=== PATIENT | male | born 1985 | race Caucasian/White ===

== ENCOUNTER 2018-08-27 10:57 | Emergency (ER) | payer OTHER ==
[~2018-08-27] VITALS: Ht 182.9 cm; Wt 99.8 kg
[2018-08-27 11:08] VITALS: BP 126/84
--- NOTE | 2018-08-27 11:38 | PHYS DOC ---
Past History Past Medical History: No Pertinent History Past Surgical History: Other Alcohol Use: None Drug Use: None Adult General Chief Complaint Chief Complaint: FOREIGNBODY EAR HPI HPI 32-year-old male presents with foreign body in his left ear. The patient has hearing aids and he was wearing them yesterday. When he pulled the left one out a piece of it came off. He was unsure if it was in his ear. Today it felt like there was some the in there so he went to [facility]. They can see the optic cannot get it out so they sent him here. She would like it removed. He has no other complaints. Review of Systems Review of Systems Constitutional: Denies fever or chills [] Eyes: Denies change in visual acuity, redness, or eye pain [] HENT: Foreign body in left ear[] Respiratory: Denies cough or shortness of breath [] Cardiovascular: No additional information not addressed in HPI [] GI: Denies abdominal pain, nausea, vomiting, bloody stools or diarrhea [] : Denies dysuria or hematuria [] Musculoskeletal: Denies back pain or joint pain [] Integument: Denies rash or skin lesions [] Neurologic: Denies headache, focal weakness or sensory changes [] Endocrine: Denies polyuria or polydipsia [] All other systems were reviewed and found to be within normal limits, except as documented in this note. Allergies Allergies Allergies Coded Allergies Type Severity Reaction Last Updated Verified No Known Drug Allergies 08/27/18 No Physical Exam Physical Exam Constitutional: Well developed, well nourished, no acute distress, non-toxic appearance. [] HENT: Normocephalic, atraumatic, bilateral external ears normal, oropharynx moist, no oral exudates, nose normal. Foreign object in left ear canal.[] Eyes: PERRLA, EOMI, conjunctiva normal, no discharge. [] Neck: Normal range of motion, no tenderness, supple, no stridor. [] Cardiovascular:Heart rate regular rhythm, no murmur [] Lungs & Thorax: Bilateral breath sounds clear to auscultation [] Abdomen: Bowel sounds normal, soft, no tenderness, no masses, no pulsatile masses. [] Skin: Warm, dry, no erythema, no rash. [] Back: No tenderness, no CVA tenderness. [] Extremities: No tenderness, no cyanosis, no clubbing, ROM intact, no edema. [] Neurologic: Alert and oriented X 3, normal motor function, normal sensory function, no focal deficits noted. [] Psychologic: Affect normal, judgement normal, mood normal. [] Current Patient Data Vital Signs Vital Signs Date Time Temp Pulse Resp B/P (MAP) Pulse Ox O2 Delivery O2 Flow Rate FiO2 08/27/18 11:08 98.1 64 18 96 Room Air EKG EKG [] Radiology/Procedures Radiology/Procedures [] Course & Med Decision Making Course & Med Decision Making Pertinent Labs and Imaging studies reviewed. (See chart for details) I was able to remove the foreign body. The patient no further complaints. He is stable for discharge at this time. [] Dragon Disclaimer Dragon Disclaimer This electronic medical record was generated, in whole or in part, using a voice recognition dictation system. Foreign Body Removal Procedure Indication: Foreign body in the left ear Procedure: I obtained verbal consent from the patient to remove the foreign object from his left ear canal. No anesthesia was used as it was not necessary. There was no prep of the area as it is external to the body. I was able to remove the object with alligator forceps on a single try. There were no remaining foreign objects left in the ear canal. The patient tolerated the procedure well. Complications: None Departure Departure: Impression: Primary Impression: Foreign body in left ear Disposition: 01 HOME, SELF-CARE Condition: IMPROVED Referrals: MALISSA PATEL MD (PCP) Problem Qualifiers Primary Impression: Foreign body in left ear Encounter type: initial encounter Qualified Codes: T16.2XXA - Foreign body in left ear, initial encounter VIVIAN RODRIGUEZ DO Aug 27, 2018 11:38
== END 2018-08-27 11:41 | disposition home or self-care (01) ==
LOC: ER 10:57
DX: T16.2XXA Foreign body in left ear, initial encounter (principal); X58.XXXA Exposure to other specified factors, initial encounter; Y93.89 Activity, other specified; Y92.89 Other specified places as the place of occurrence of the external cause; Y99.8 Other external cause status
CPT/HCPCS: 69200; 99284

== ENCOUNTER 2018-09-12 03:46 | Emergency (ER) | payer OTHER ==
[~2018-09-12] VITALS: Ht 182.9 cm; Wt 99.8 kg
[2018-09-12] MEDS ORDERED: HYDROmorphone PF 1 MG/ML DISP.SYRIN ONE (03:57)
[2018-09-12] MEDS ORDERED: KETOROLAC 30 MG/ML VIAL. ONE (03:57)
[2018-09-12] MEDS ORDERED: ONDANSETRON PF 4 MG/2 ML VIAL. ONE (03:57)
[2018-09-12] MEDS ORDERED: TAMSULOSIN 0.4 MG CAP.ER.24H. PO ONE (03:57)
[2018-09-12] MEDS: ONDANSETRON PF 4 MG/2 ML VIAL. IV ONE ×2 (03:59→07:31)
[2018-09-12] MEDS: IV NORMAL SALINE 1,000ML 1,000 ML IV SCH (03:59)
[2018-09-12] MEDS: KETOROLAC 30 MG/ML VIAL. IV ONE (04:00)
[2018-09-12] MEDS: HYDROmorphone PF 1 MG/ML DISP.SYRIN IV/SQ PRN (04:00)
--- NOTE | 2018-09-12 04:00 | PHYS DOC ---
Past History Past Medical History: No Pertinent History Past Surgical History: Other Alcohol Use: None Drug Use: None Adult General Chief Complaint Chief Complaint: flank pain HPI HPI Patient is a 32-year-old male who presents with complaint of left flank pain that started approximately 45 minutes prior to his arrival. Patient states pain woke him from sleep. He rates pain at a 9 out of 10. He admits to nausea and diaphoresis. He has not vomited yet. Patient states that this is very similar to when he had had a kidney stone in the past. Review of Systems Review of Systems Constitutional: Denies fever or chills [] Respiratory: Denies cough or shortness of breath [] Cardiovascular: No additional information not addressed in HPI [] GI: Complains of left-sided flank and abdominal pain with nausea. Denies vomiting or diarrhea [] : Denies dysuria or hematuria [] Musculoskeletal: Complains of left-sided back pain [] All other systems were reviewed and found to be within normal limits, except as documented in this note. Current Medications Current Medications Current Medications Medications (Trade) Dose Ordered Sig/Barbra Start Time Stop Time Status Last Admin Dose Admin Ondansetron HCl (Zofran) 4 mg STK-MED ONCE 09/12/18 03:57 09/12/18 03:58 DC Allergies Allergies Allergies Coded Allergies Type Severity Reaction Last Updated Verified No Known Drug Allergies 08/27/18 No Physical Exam Physical Exam Constitutional: Well developed, well nourished, in mild distress, non-toxic appearance. [] HENT: Normocephalic, atraumatic, bilateral external ears normal, oropharynx moist, no oral exudates, nose normal. [] Eyes: PERRLA, EOMI, conjunctiva normal, no discharge. [] Neck: Normal range of motion, no tenderness, supple, no stridor. [] Cardiovascular:Heart rate regular rhythm, no murmur [] Lungs & Thorax: Bilateral breath sounds clear to auscultation [] Abdomen: Bowel sounds normal, soft, no tenderness. [] Skin: Warm, dry, no erythema, no rash. [] Extremities: No tenderness, no cyanosis, no clubbing, ROM intact, no edema. [] Neurologic: Alert and oriented X 3, no focal deficits noted. [] EKG EKG [] Radiology/Procedures Radiology/Procedures [] Impressions: PROCEDURE: CT ABDOMEN PELVIS WO CONTRAST EXAM: CT Abdomen and Pelvis without IV contrast CLINICAL HISTORY: Left back and flank pain. Hx kidney stones. COMPARISON: none TECHNIQUE: Helical CT of the abdomen and pelvis without intravenous contrast. Axial, coronal and sagittal reformatted images were generated. PQRS compliance statement - One or more of the following individualized dose reduction techniques were utilized for this study: 1. Automated exposure control 2. Adjustment of the mA and/or kV according to patient size 3. Use of iterative reconstruction technique FINDINGS: Lack of intravenous contrast limits evaluation of solid organs, vasculature, and lymph nodes. Lower chest: Lung bases are clear Abdomen and Pelvis: No focal liver lesion. Gallbladder is normal. No biliary ductal dilatation. Pancreas is unremarkable. Spleen is unremarkable. Adrenal glands are normal. Left renal calculi are seen, punctate in the upper and lower pole and up to 3 mm in the interpolar region. Punctate nonobstructing right upper pole renal calculus. A 3 mm calculus is seen within the proximal left ureter. Mild left hydronephrosis. Bladder is unremarkable. Appendix is normal. Moderate colonic stool content is seen. No small or large bowel obstruction. No abdominal or pelvic lymphadenopathy although several mildly prominent retroperitoneal lymph nodes are seen. No abdominal or pelvic ascites. Bones: Grossly unremarkable IMPRESSION: 1. A 3 mm calculus is seen within the proximal left ureter with mild associated left hydronephrosis. 2. Additional bilateral nonobstructing renal calculi measuring up to 3 mm. Electronically signed by: Johnnie Gomes MD (09/12/2018 4:52 AM) [facility] [id number] DICTATED AND SIGNED BY: JOHNNIE GOMES MD Course & Med Decision Making Course & Med Decision Making Pertinent Labs and Imaging studies reviewed. (See chart for details) [] Dragon Disclaimer Dragon Disclaimer This electronic medical record was generated, in whole or in part, using a voice recognition dictation system. Departure Departure: Impression: Primary Impression: Ureterolithiasis Disposition: HOME, SELF-CARE Condition: STABLE Referrals: MALISSA PATEL MD (PCP) Patient Instructions: Kidney Stones Scripts Ketorolac Tromethamine (KETOROLAC TROMETHAMINE) 10 Mg Tablet 1 TAB PO PRN Q6HRS PRN for PAIN, #20 TAB Prov: VISHAL MIX Jr. DO 09/12/18 Tamsulosin Hcl (FLOMAX) 0.4 Mg Cap.er.24h 1 CAP PO DAILY for kidney stone, #10 CAP Prov: VISHAL MIX Jr. DO 09/12/18 Oxycodone Hcl/Acetaminophen (PERCOCET 10-325 MG TABLET ) 1 Each Tablet 1 TAB PO PRN Q6HRS PRN for PAIN, #15 TAB Prov: VISHAL MIX Jr. DO 09/12/18 Ondansetron Hcl (ZOFRAN) 4 Mg Tablet 4 MG PO Q6HRS PRN for NAUSEA, #12 TAB Prov: VISHAL MIX Jr. DO 09/12/18 VISHAL MIX Jr. DO Sep 12, 2018 03:59
[2018-09-12 04:20] LABS: BASO # 0.1 x10^3/uL (0.0-0.2); BASO % 1 % (0-3); EOS # 0.2 x10^3/uL (0.0-0.7); EOS % 3 % (0-3); HEMOGLOBIN 15.9 g/dL (13.0-17.5); LYMPH % 52 % (24-48); MEAN CORPUSCULAR HEMOGLOBIN 30 pg (25-35); MEAN CORPUSCULAR HGB CONC 34 g/dL (31-37); MEAN CORPUSCULAR VOLUME 88 fL (79-100); MONO # 0.7 x10^3/uL (0.0-1.1); MONO % 13 % (0-9); NEUT # 1.8 x10^3uL (1.8-7.7); NEUT % 32 % (31-73); PLATELET COUNT 217 x10^3/uL (140-400); RED BLOOD COUNT 5.35 x10^6/uL (4.30-5.70); RED CELL DISTRIBUTION WIDTH 13.6 % (11.5-14.5); WHITE BLOOD COUNT 5.7 x10^3/uL (4.0-11.0)
[2018-09-12 04:28] LABS: ALBUMIN/GLOBULIN RATIO 1.3 (1.0-1.7); CALCIUM 9.2 mg/dL (8.5-10.1); GFR 87.7; POTASSIUM 3.5 mmol/L (3.5-5.1); TOTAL BILIRUBIN 0.3 mg/dL (0.2-1.0); TOTAL PROTEIN 7.2 g/dL (6.4-8.2)
[2018-09-12] MEDS: TAMSULOSIN 0.4 MG CAP.ER.24H. PO ONE (04:35)
[2018-09-12] MEDS: HYDROmorphone PF 2 MG/ML VIAL IV/SQ PRN (04:38)
--- NOTE | 2018-09-12 04:55 | RAD ---
EXAM: CT Abdomen and Pelvis without IV contrast CLINICAL HISTORY: Left back and flank pain. Hx kidney stones. COMPARISON: none TECHNIQUE: Helical CT of the abdomen and pelvis without intravenous contrast. Axial, coronal and sagittal reformatted images were generated. PQRS compliance statement - One or more of the following individualized dose reduction techniques were utilized for this study: 1. Automated exposure control 2. Adjustment of the mA and/or kV according to patient size 3. Use of iterative reconstruction technique FINDINGS: Lack of intravenous contrast limits evaluation of solid organs, vasculature, and lymph nodes. Lower chest: Lung bases are clear Abdomen and Pelvis: No focal liver lesion. Gallbladder is normal. No biliary ductal dilatation. Pancreas is unremarkable. Spleen is unremarkable. Adrenal glands are normal. Left renal calculi are seen, punctate in the upper and lower pole and up to 3 mm in the interpolar region. Punctate nonobstructing right upper pole renal calculus. A 3 mm calculus is seen within the proximal left ureter. Mild left hydronephrosis. Bladder is unremarkable. Appendix is normal. Moderate colonic stool content is seen. No small or large bowel obstruction. No abdominal or pelvic lymphadenopathy although several mildly prominent retroperitoneal lymph nodes are seen. No abdominal or pelvic ascites. Bones: Grossly unremarkable IMPRESSION: 1. A 3 mm calculus is seen within the proximal left ureter with mild associated left hydronephrosis. 2. Additional bilateral nonobstructing renal calculi measuring up to 3 mm. Electronically signed by: Johnnie Gomes MD (09/12/2018 4:52 AM) [id number]
[2018-09-12] MEDS ORDERED: TAMS0.4C97 PO (05:05)
[2018-09-12] MEDS ORDERED: KETO10TA PO (05:05)
[2018-09-12] MEDS ORDERED: OXYC1TAB22 PO (05:05)
[2018-09-12] MEDS ORDERED: ONDA4TAB7 PO (05:05)
[2018-09-12 06:40] VITALS: BP 109/49
== END 2018-09-12 07:39 | disposition home or self-care (01) ==
LOC: ER 03:46
DX: N13.2 Hydronephrosis with renal and ureteral calculous obstruction (principal)
CPT/HCPCS: 36415; 74176; 80053; 85025; 96374; 96375; 96376; 99284; J1170; J1885; J2405; J7030

== ENCOUNTER 2019-03-31 18:22 | Emergency (ER) | payer OTHER ==
[~2019-03-31] VITALS: Ht 182.9 cm; Wt 103.8 kg
[~2019-03-31 18:22] MED LIST: KETO10TA PO; ONDA4TAB7 PO; OXYC1TAB22 PO; TAMS0.4C97 PO
[2019-03-31 18:31] VITALS: BP 116/78
--- NOTE | 2019-03-31 18:39 | PHYS DOC ---
Past History Past Medical History: No Pertinent History, Kidney Stones Past Surgical History: Other Smoking: Non-smoker Alcohol Use: None Drug Use: None Adult General Chief Complaint Chief Complaint: LACERATION/AVULSION HPI HPI Patient is a 33-year-old male who presents to the emergency department for evaluation. He states was slicing lettuce just prior to arrival, when the knife slipped and he accidentally stabbed his left thumb. He has a small semicircular laceration which involves both the distal tip of his fingernail, and the distal tip of his finger pad. The C-shaped laceration is well approximated, and superficial. It does not warrant repair. He was concerned because there was a f air amount of bleeding at the home, but this has resolved at this time. His tetanus is up-to-date. He has no other complaints and no other injuries. Review of Systems Review of Systems Constitutional: Denies fever or chills [] Neurologic: Denies headache, focal weakness or sensory changes [] Allergies Allergies Allergies Coded Allergies Type Severity Reaction Last Updated Verified No Known Drug Allergies 08/27/18 No Physical Exam Physical Exam PHYSICAL EXAM: HEENT: Atruamatic NECK: Supple, normal ROM, non-tender. CARDIAC: Regular Rate and Rhythm LUNGS: Clear Bilaterally EXTREMITIES: On the left thumb, There is a 2 cm superficial laceration involving the distal fingernail, and extending around to the distal finger tip/pad. In the neutral position the laceration edges are well approximated and do not come apart. This wound does not warrant repair. EKG EKG [] Radiology/Procedures Radiology/Procedures [] Course & Med Decision Making Course & Med Decision Making I discussed wound care with the patient, using anabolic ointment and a bandage to stabilize the skin in place, and wound care and return precautions were discu ssed in detail. Dragon Disclaimer Dragon Disclaimer This electronic medical record was generated, in whole or in part, using a voice recognition dictation system. Departure Departure: Impression: Primary Impression: Thumb laceration Disposition: HOME, SELF-CARE Condition: STABLE Referrals: MALISSA PATEL MD (PCP) Patient Instructions: Fingertip Laceration, Laceration Care, Adult Additional Instructions: Keep wound clean and dry. Apply topical anabolic ointment to the affected area, and keep a bulky dressing in place, using bandages to keep the wound edges well approximated (in place). ANDRA MEMBRENO MD Mar 31, 2019 18:39
== END 2019-03-31 18:47 | disposition home or self-care (01) ==
LOC: ER 18:22
DX: S61.112A Laceration without foreign body of left thumb with damage to nail, initial encounter (principal); W26.0XXA Contact with knife, initial encounter; Y93.89 Activity, other specified; Y92.89 Other specified places as the place of occurrence of the external cause; Y99.8 Other external cause status; Z87.442 Personal history of urinary calculi
CPT/HCPCS: 99281; 99283